=== PATIENT | female | born 1975 | race Caucasian/White ===

== ENCOUNTER 2019-11-20 06:01 | Day surgery (SDC) | payer OTHER ==
[2019-11-11 15:34] VITALS: BMI 23.0
--- NOTE | 2019-11-20 06:50 | HP ---
History & Physical Update - History History: No Change - Physical Physical: No Change - Assessment Assessment: No Change - Plan Plan: No Change
[2019-11-20] MEDS ORDERED: MIDAZOLAM HCL 2 MG/2 ML SINGLE DOSE VIAL ONE (07:26)
[2019-11-20] MEDS ORDERED: PROPOFOL 20 ML ONE (07:26)
[2019-11-20] MEDS ORDERED: SUCCINYLCHOLINE CHLORIDE 200 MG/10 ML SYRINGE ONE (07:26)
[2019-11-20] MEDS ORDERED: ROCURONIUM BROMIDE 50 MG/5 ML VIAL ONE (07:27)
[2019-11-20] MEDS ORDERED: SODIUM CHLORIDE 0.9% P/F 10 ML VIAL IJ ONE (07:58)
[2019-11-20] MEDS ORDERED: BUPIVACAINE HCL/PF 2.5 MG/ML - 30 ML VIAL IJ ONE (07:58)
[2019-11-20] MEDS ORDERED: BUPIVACAINE HCL/PF 0.25% (2.5MG/ML) 10 ML VIAL IJ ONE (09:00)
[2019-11-20] MEDS ORDERED: oxyCODONE HCL 5 MG TABLET PO PRN ×3 (09:23→09:47)
[2019-11-20] MEDS ORDERED: ONDANSETRON 4 MG/2 ML VIAL IVPUSH PRN (09:23)
[2019-11-20] MEDS ORDERED: PROMETHAZINE HCL 25 MG/1 ML VIAL IVPUSH PRN (09:23)
[2019-11-20] MEDS ORDERED: ACETAMINOPHEN 500 MG TABLET (FP) PO PRN (09:29)
[2019-11-20] MEDS ORDERED: LACTATED RINGERS SOLUTION 1,000 ML IV SCH (09:30)
[2019-11-20] MEDS ORDERED: ACETAMINOPHEN 325 MG TABLET (FP) PO PRN (09:47)
[2019-11-20 11:09] VITALS: BP 112/72; PULSE 74; TEMP 97.8
--- NOTE | 2019-11-20 16:17 | OPR ---
Procedure: Right Elbow- 1. Diagnostic arthroscopy. 2. Arthroscopic extensive debridement of the elbow joint, including extensor carpi radialis brevis and partial synovectomy (78481). Preoperative Diagnoses: Right Elbow- 1. Recalcitrant lateral epicondylitis Postoperative Diagnoses: Right Elbow- 1. Recalcitrant lateral epicondylitis. 2. 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 3. Synovitis Surgeon: Diego Castrejon DO Assistants: Joey Shearer DO Anesthesia: General anesthesia, Local infiltration analgesic with 0.25% Bupivicaine. Estimated Blood Loss: Minimal Drains: None Total IV Fluids: Per anesthesia record Specimens: None Implants: None. Complications: None Disposition: PACU Condition: Hemodynamically stable Indications: Anju Nevarez presented to us with chronic right elbow pain that failed conservative measures. She was diagnosed with recalcitrant lateral epicondylitis. The patient failed over a year of conservative treatment consisting of anti-inflammatory medication, physical therapy, bracing, and a corticosteroid injection. An MRI of the elbow was used to confirm common ex tensor tendon pathology. She ultimately elected to proceed with surgical intervention after discussion of the risks, benefits, alternatives. We discussed risks including but not limited to, bleeding, pain, infection, scarring, damage to neurovascular structures, blood clots, pulmonary embolus, need for additional surgery, incomplete relief of pain, and incomplete return of function. She expressed understanding and wished to proceed. She underwent preoperative medical evaluation clearance and optimization prior to surgery. Procedure Details: She was identified in the preoperative area. The right elbow was marked as the operative site and consent was completed and confirmed. She was later transferred to the operating room and placed in supine position the operating room. General anesthesia was induced without difficulty. The patient was then repositioned in the lateral decubitus position on a iniguez bag with the operative side up. All potential pressure points were carefully padded. The neck was in neutral alignment. A tourniquet was placed on the arm at the midhumeral level, but it was not inflated during the case. A surgical time-out was performed identifying the correct patient, procedure, and site. Antibiotics were given within 1 hour prior to surgical incision. Examination under anesthesia: Passive range of motion of the right elbow showed extension of 5 degrees and flexion of 130 degrees. A arm holloway was positioned underneath the arm, allowing the elbow to move from 90 degrees of flexion to full extension. The upper extremity was prepped and draped in standard sterile fashion. The surgical landmarks were drawn on the elbow, including the olecranon, lateral epicondyle, and medial epicondyle. The ulnar nerve was drawn in its position to bring constant attention to its location. Arthroscopic portals were drawn. The extremity was exsanguinated with a compressive elastic bandage, and the tourniquet was inflated to 250 mmHg. Of note, the total tourniquet time for this procedure was 43 minutes. The planned portal incisions were injected with a 0.25% bupivacaine. The elbow joint was inflated with 20 mL of normal sterile saline solution through the lat eral soft spot outlined by the lateral epicondyle, radial head, and olecranon to facilitate entry into the intra-articular space with the arthroscope. Diagnostic arthroscopy: We began the procedure with the standard proximal medial portal. An incision through only skin, and a hemostat was passed through the fascia and spread at the joint capsule. The arthroscopic cannula was introduced with a blunt trocar. The tip of the trocar was directed inferior toward the center of the anterior compartment of the elbow and was gently pushed through the elbow capsule. The trocar was removed, and a standard-sized arthroscope was introduced. A lateral portal working portal was then established through an outside-in technique. This lateral portal was located 1 cm proximal and 1 cm anterior to the lateral epicondyle. An 18-gauge spinal needle was introduced into the joint to localize the correct position. A small incision was made through the skin only, and a 5.25-mm threaded cannula was then introduced. Alternatively, after the skin incision, the lateral anterior capsule can be penetrated with a trocar was used to penetrate the lateral capsule. A probe was used to assist with diagnostic arthroscopy and we visualized from both medially and laterally. Evaluation of the elbow joint showed intra-articular synovitis in the region of the radiocapitellar joint, which was debrided. There were areas of grade I-II chondromalacia on the radial head and areas of grade I-III chondromalacia on the capitellum. The trochlea and coronoid showed no significant chondral defects. Evaluation of the lateral capsule showed a type II capsular lesion with a linear capsular tear/horizontal rent. Arthroscopic extensive debridement of the elbow joint: We used a combination of the arthroscopic motorized shaver and radiofrequency device to perform an extensive debridement inside the elbow joint. A window in the lateral capsular tissue was created using a radiofrequency device, to expose the extensor carpi radialis brevis origin. The lateral capsular tissue and degenenerated ECRB tendon were then resected. Synovitic fronds were thermally ablated, and the synovial fringe tissue over the radial head was debrided. A chondroplasty was then performed on the radial head and capitellum. The tourniquet was deflated and hemostasis achieved. Wound closure: The arthroscopic portal incisions were closed with 3-0 Nylon sutures. The elbow was sterilely dressed and a sterile compressive dressing was applied from the wrist to the axilla and the arm is placed in a sling. Post-operative Details: I spoke with the patient regarding the operation after surgery. A neurovascular exam was performed in the recovery room and was found to be normal Postoperative rehabilitation: The patient was encouraged to ice regularly during the first 72 hours and begin immediate gentle elbow passive range of motion. The patient can wear a sling for comfort, and the sling can be discontinued as comfort improves. Active ROM will start 48 hours postoperatively with no lifting anything heavier than a coffee cup. Formal therapy will begin at 10-14 days and continues for 6 to 8 weeks. Active range of motion incorporating the wrist extensors and forearm supination is avoided for 3 to 4 weeks to avoid inciting inflammation at the surgical site. Isometric strengthening will begin once full motion is achieved, typically by 2 to 4 weeks. Resistance exercises are started 4 to 6 weeks postoperatively. Unrestricted use of the extremity is allowed at approximately 12 weeks. Attestation for machinist first class: Joey Dailey acted as the machinist first class. There was no qualified resident or physician assistant at surgery available to do so.
--- NOTE | 2019-11-23 15:09 | PATH ---
Surgical Pathology Report Patient Name: TAYLOR ONTIVEROS Med. Rec. #: [id number] /Age/Gender: 1975 (Age: 43) / F Account: [id number] Location: [facility] Taken: 11/20/2019 Received: 11/20/2019 Reported: 11/23/2019 Physicians: Diego Castrejon DO Specimen(s) Received RIGHT ELBOW SHAVINGS Clinical History Right elbow lateral epicondylitis Final Diagnosis ELBOW, RIGHT, ARTHROSCOPIC SHAVINGS: FIBROCOLLAGENOUS TISSUE AND SKELETAL MUSCLE. Electronically Signed Nora Cuevas M.D. Gross Description Received in formalin labeled "right elbow shavings," is a 2.5 x 1.5 x 0.3 cm aggregate of lagos-yellow soft tissue fragments. The formalin is filtered and the specimen is entirely submitted in one cassette. DL/11/20/2019 saudi/11/20/2019
== END 2019-11-20 11:09 | disposition home or self-care (01) ==
LOC: FASU 06:01
PROVIDERS: ATTEND Orthopaedic Surgery
PROC: 0RBL4ZZ Excision of Right Elbow Joint, Percutaneous Endoscopic Approach (ICD-10-PCS; principal; 2019-11-20 08:10)
DX: M77.11 Lateral epicondylitis, right elbow (principal); M94.221 Chondromalacia, right elbow; M65.9 Synovitis and tenosynovitis, unspecified
CPT/HCPCS: 81025; 88304-TC; 94760

== ENCOUNTER 2022-10-05 06:06 | Day surgery (SDC) | payer OTHER ==
[2022-10-03 15:21] VITALS: BMI 23.9
[2022-10-05] MEDS ORDERED: BUPIVACAINE HCL/PF 0.5% (5MG/ML) 10 ML VIAL ONE (07:36)
[2022-10-05] MEDS ORDERED: MIDAZOLAM HCL 2 MG/2 ML SINGLE DOSE VIAL ONE (07:36)
[2022-10-05] MEDS ORDERED: DEXAMETHASONE SOD PHOSPHATE/PF 10 MG/ML SDV ONE (07:36)
[2022-10-05] MEDS ORDERED: BUPIVACAINE HCL/EPINEPHRINE/PF 30 ML VIAL IJ ONE (07:42)
[2022-10-05] MEDS ORDERED: BUPIVACAINE HCL/PF 0.25% (2.5MG/ML) 10 ML VIAL ONE (07:42)
[2022-10-05] MEDS ORDERED: PROPOFOL 20 ML ONE ×2 (08:05→09:17)
[2022-10-05] MEDS ORDERED: ceFAZolin SODIUM 1 GM VIAL ONE (08:36)
[2022-10-05] MEDS ORDERED: ONDANSETRON 4 MG/2 ML VIAL ONE (08:46)
[2022-10-05] MEDS ORDERED: DEXAMETHASONE SOD PHOSPHATE 4 MG/1 ML VIAL ONE (08:46)
[2022-10-05] MEDS ORDERED: BUPIVACAINE 0.25% /EPI 1:200,000 10 ML VIAL NR ONE (08:58)
[2022-10-05 11:32] VITALS: BP 114/65; PULSE 76; RESP 20; TEMP 98.2
== END 2022-10-05 11:20 | disposition home or self-care (01) ==
LOC: FASU 06:06
PROVIDERS: ATTEND Orthopaedic Surgery
PROC: 0PBB4ZZ Excision of Left Clavicle, Percutaneous Endoscopic Approach (ICD-10-PCS; principal; 2022-10-05 08:59)
PROC: 0RBK4ZZ Excision of Left Shoulder Joint, Percutaneous Endoscopic Approach (ICD-10-PCS; 2022-10-05 08:59)
PROC: 0LS44ZZ Reposition Left Upper Arm Tendon, Percutaneous Endoscopic Approach (ICD-10-PCS; 2022-10-05 08:59)
DX: M75.22 Bicipital tendinitis, left shoulder (principal); M75.52 Bursitis of left shoulder; M65.822 Other synovitis and tenosynovitis, left upper arm; M19.012 Primary osteoarthritis, left shoulder
CPT/HCPCS: 81025; 88304-TC; C1713

== ENCOUNTER 2024-10-05 06:18 | Day surgery (SDC) | payer OTHER ==
[2024-09-29 13:38] VITALS: BMI 23.6
[2024-10-05] MEDS ORDERED: PROPOFOL 20 ML ONE ×2 (07:16→07:51)
[2024-10-05] MEDS ORDERED: MIDAZOLAM HCL 2 MG/2 ML SINGLE DOSE VIAL ONE (07:16)
[2024-10-05] MEDS ORDERED: LIDOCAINE HCL 1%, 10 MG/ML (20ML VIAL) ONE (07:32)
[2024-10-05] MEDS ORDERED: oxyCODONE HCL 5 MG TABLET PO PRN (08:36)
[2024-10-05] MEDS ORDERED: ONDANSETRON 4 MG/2 ML VIAL ONE (08:45)
[2024-10-05] MEDS ORDERED: FENTANYL CITRATE/PF 50 MCG/ML VIAL ONE (08:45)
[2024-10-05] MEDS ORDERED: LACTATED RINGERS SOLUTION 1,000 ML IV SCH (08:45)
[2024-10-05] MEDS ORDERED: ACETAMINOPHEN INJECTION 100 ML ONE (08:46)
[2024-10-05] MEDS: ONDANSETRON 4 MG/2 ML VIAL IVPUSH PRN (08:52)
[2024-10-05] MEDS: ACETAMINOPHEN 1000 MG/100 ML BAG IVPB PRN (08:53)
[2024-10-05 09:23] VITALS: RESP 18; TEMP 97.4
[2024-10-05 10:05] VITALS: BP 116/72; PULSE 54
== END 2024-10-05 10:02 | disposition home or self-care (01) ==
LOC: FASU 06:18
PROVIDERS: ATTEND Orthopaedic Surgery
PROC: 0LN30ZZ Release Right Upper Arm Tendon, Open Approach (ICD-10-PCS; principal; 2024-10-05 08:00)
DX: M77.12 Lateral epicondylitis, left elbow (principal)
CPT/HCPCS: 81025; 94760

== ENCOUNTER 2025-03-05 06:22 | Day surgery (SDC) | payer OTHER ==
[2025-03-05] MEDS: TRIAMCINOLONE ACET 40MG/1ML VIAL IM ONE
[2025-03-05] MEDS ORDERED: LIDOCAINE HCL/PF 1% SDV 5ML VIAL ONE (07:23)
[2025-03-05 07:45] VITALS: RESP 20
[2025-03-05] MEDS ORDERED: ACETAMINOPHEN 500 MG TABLET (FP) PO PRN (08:44)
[2025-03-05] MEDS: LIDOCAINE HCL 1% PRESERVATIVE FREE - 30ML VIAL IJ ONE ×2 (09:05)
[2025-03-05] MEDS: IOHEXOL 180 MG/1 ML ML IJ ONE ×2 (09:05)
[2025-03-05 09:37] VITALS: BP 114/70; PULSE 67; TEMP 98.2
== END 2025-03-05 10:00 | disposition home or self-care (01) ==
LOC: JASU-SURG 06:22
PROVIDERS: ATTEND Pain Medicine Pain Medicine
PROC: 3E0U3BZ Introduction of Anesthetic Agent into Joints, Percutaneous Approach (ICD-10-PCS; 2025-03-05)
PROC: 3E0U33Z Introduction of Anti-inflammatory into Joints, Percutaneous Approach (ICD-10-PCS; principal; 2025-03-05 08:30)
DX: M16.11 Unilateral primary osteoarthritis, right hip (principal)
CPT/HCPCS: 76000-TC-FY